=== PATIENT | male | born 1960 | race Caucasian/White ===

== ENCOUNTER → 2019-02-12 10:14 | Outpatient (CLI) | payer SELFPAY ==
--- NOTE | 2019-02-12 10:20 | XR_ITS ---
XR knee LT 3V HISTORY: ITS.REASON: LT KNEE PAIN,EFFUSION, INSTABILITY ORDERING PHYSICIAN: Myriam Wells APRN PATIENT AGE: 58 years COMPARISON: None FINDINGS: There are mild osteoarthritic changes involving medial and lateral compartment with chondrocalcinosis of the medial and lateral meniscus. Small suprapatellar effusion noted. There is vascular calcification. No fracture or dislocation. No lytic or blastic change. IMPRESSION: Osteoarthritis with chondrocalcinosis and small knee joint effusion
== END ==
PROVIDERS: PCP Nurse Practitioner Family; Visit Provider Nurse Practitioner Family
DX: M25.562 Pain in left knee (principal); M25.462 Effusion, left knee; M25.362 Other instability, left knee
CPT/HCPCS: 73562

== ENCOUNTER → 2023-01-26 14:14 | Outpatient (CLI) | payer SELFPAY ==
--- NOTE | 2023-01-26 14:20 | US_ITS ---
FINAL REPORT CLINICAL HISTORY: BILATERAL NEUROPATHY,REST PAIN,SMOKER,HTN,HLD COMPARISON: None FINDINGS: LOWER EXTREMITY SEGMENTAL PRESSURE MEASUREMENTS FINDINGS: Pressure indices are as follows: RIGHT LOWER EXTREMITY: Thigh: 1.27 Calf: 1.49 Ankle, posterior tibial artery: Noncompressible Ankle, dorsalis pedis: Noncompressible Toe: 1.22 MELYSSA: Noncompressible LEFT LOWER EXTREMITY: Thigh: 1.19 Calf: Noncompressible Ankle, posterior tibial artery: 1.42 Ankle, dorsalis pedis: 1.39 Toe: 1.32 MELYSSA: 1.42 IMPRESSION: Although the measured ABIs do not indicate significant obstructive peripheral vascular disease, these are suspected to be falsely elevated due to high values for measured segments. Reviewed, Interpreted and Dictated by Mando Jorge MD Transcribed by Joselin Skelton Authenticated and [facility]
== END ==
PROVIDERS: PCP Nurse Practitioner Family; Visit Provider Nurse Practitioner Family
DX: G62.9 Polyneuropathy, unspecified (principal)
CPT/HCPCS: 93923